=== PATIENT | female | born 1995 | race African-American/Black ===

== ENCOUNTER 2018-11-21 00:17 | Emergency (ER) | payer OTHER ==
[2018-11-21] MEDS ORDERED: LIDOCAINE HCL 1%, 10 MG/ML (20ML VIAL) ONE (01:25)
[2018-11-21 01:29] VITALS: BMI 23.6
--- NOTE | 2018-11-21 01:56 | PDOC ---
History of Present Illness - General Chief Complaint: Foreign Body (FB) Stated Complaint: BUG IN EAR Time Seen by Provider: 11/21/18 01:46 - History of Present Illness Initial Comments: 11/21/18 01:46 23 yo F with no significant pmh who p/w left ear foreign body. Patient reports sensation of left ear "crawling," 30 minutes [employer], and also endorses otalgia. States that she can hear "buzzing," in her left ear. Denies foreign body insertion, or manipulation. Reports waking up from sleep in bed, and coming to ED. Denies h/o similar sensation. Denies topical application of medication. Patient denies JOSÉ, tinnitus, vision change, palpitations, cough, wheezing, orthopena, PND, leg swelling/pain, N/V, F,C, CP, SOB, urinary complaints, hematuria, BPR, abdominal pain, diarrhea, constipation, lightheadedness, weakness, sensory changes. PMHx: as noted above ROS: as noted SHx: Denies Etoh, IVDA, tobacco use Allergies: NKDA Past History - Past Medical History Allergies/Adverse Reactions: Allergies Allergy/AdvReac Type Severity Reaction Status Date / Time No Known Allergies Allergy Verified 11/21/18 01:29 Home Medications: Ambulatory Orders NK [No Known Home Medication] 11/21/18 - Suicide/Smoking/Psychosocial Hx Smoking History: Never smoked Have you smoked in the past 12 months: No Hx Alcohol Use: No Drug/Substance Use Hx: No Review of Systems - Review of Systems Comments:: 11/21/18 01:59 GENERAL/CONSTITUTIONAL: No fever or chills. No weakness. HEAD, EYES, EARS, NOSE AND THROAT: No change in vision. No ear pain or discharge. No sore throat. CARDIOVASCULAR: No chest pain or shortness of breath RESPIRATORY: No cough, wheezing, or hemoptysis. GASTROINTESTINAL: No nausea, vomiting, diarrhea or constipation. GENITOURINARY: No dysuria, frequency, or change in urination. MUSCULOSKELETAL: No joint or muscle swelling or pain. No neck or back pain. SKIN: No rash NEUROLOGIC: No headache, vertigo, loss of consciousness, or change in strength/ sensation. ENDOCRINE: No increased thirst. No abnormal weight change HEMATOLOGIC/LYMPHATIC: No anemia, easy bleeding, or history of blood clots. ALLERGIC/IMMUNOLOGIC: No hives or skin allergy. *Physical Exam - Vital Signs Last Vital Signs Temp Pulse Resp BP Pulse Ox 98.0 F 88 17 118/79 99 11/21/18 00:17 11/21/18 00:17 11/21/18 00:17 11/21/18 00:17 11/21/18 00:17 - Physical Exam Comments: 11/21/18 01:59 GENERAL: Awake, alert, and fully oriented, in no acute distress HEAD: No signs of trauma, normocephalic, atraumatic EYES: PERRLA, EOMI, sclera anicteric, conjunctiva clear ENT: + Left ear FB/insect with yellow coloration measuring 2-3mm. Auricles normal inspection, hearing grossly normal, nares patent, oropharynx clear without exudates. Moist mucosa NECK: Normal ROM, supple, no lymphadenopathy, JVD, or masses LUNGS: No distress, speaks full sentences, clear to auscultation bilaterally HEART: Regular rate and rhythm, normal S1 and S2, no murmurs, rubs or gallops, peripheral pulses normal and equal bilaterally. ABDOMEN: Soft, nontender, normoactive bowel sounds. No guarding, no rebound. No masses EXTREMITIES : Normal inspection, Normal range of motion, no edema. No clubbing or cyanosis. NEUROLOGICAL: Cranial nerves II through XII grossly intact. Normal speech, normal gait, no focal sensorimotor deficits SKIN: Warm, Dry, normal turgor, no rashes or lesions noted Medical Decision Making - Medical Decision Making 11/21/18 01:56 23 yo F with no significant pmh who p/w left ear foreign body. Vitals wnl, AF, A &OX3. + Left ear forign /body insect. TM intact. Absent evidence of ruptured TM. Hearing intact. Negative bleeding or discharge. Plan to remove foreign body in ED. Ed Course: + 3-4 mm Insect, with yellow coloration removed from patient ear canal. Absent retained insect parts visualized. Ear irrigated with 2 % topical lidcoaine 5 ml prior to removal with petroleum covered curette. 11/21/18 01:59 Patient stable Symptoms improved 11/21/18 02:46 Patient walked out Ed before receiving paperwork *DC/Admit/Observation/Transfer Diagnosis at time of Disposition: Foreign body in left ear Qualifiers: Encounter type: initial encounter Qualified Code(s): T16.2XXA - Foreign body in left ear, initial encounter - Discharge Dispostion Disposition: ELOPED Condition at time of disposition: Stable Decision to Admit order: No - Referrals Referrals: Ti Spivey MD [Staff Physician] - - Patient Instructions Printed Discharge Instructions: DI for Removal of Foreign Body From Ear Additional Instructions: Please return to the emergency department with any new or worsening symptoms or concerns. Please follow up with your ear,nose,throat or primary care physician within 72 hours. - Post Discharge Activity
--- NOTE | 2018-11-21 01:56 | PDOC ---
Attending Attestation - Resident Resident Name: Carlos Jackson - ED Attending Attestation I have performed the following: I have examined & evaluated the patient, The case was reviewed & discussed with the resident, I agree w/resident's findings & plan - HPI HPI: 11/22/18 20:47 Left ear FB; she feels a bug crawling. - Physicial Exam PE: 11/22/18 20:47 Agree with resident exam. Pt has normal exam; no other complaints. - Medical Decision Making 11/22/18 20:47 Bug removed and pt walked out.
[2018-11-21 02:51] VITALS: BP 101/61; PULSE 69; TEMP 98.3
== END 2018-11-21 01:50 | disposition left against medical advice (07) ==
LOC: JER 00:17
PROC: 09C47ZZ Extirpation of Matter from Left External Auditory Canal, Via Natural or Artificial Opening (ICD-10-PCS; principal; 2018-11-21)
DX: T16.2XXA Foreign body in left ear, initial encounter (principal); X58.XXXA Exposure to other specified factors, initial encounter; Y93.89 Activity, other specified; Y92.89 Other specified places as the place of occurrence of the external cause; Y99.8 Other external cause status
CPT/HCPCS: 99281-25